=== PATIENT | female | born 1975 | race Caucasian/White ===

== ENCOUNTER 2022-03-04 13:53 | Emergency (ER) | payer BC ==
[~2022-03-04] VITALS: Ht 162.6 cm; Wt 99.5 kg
[2022-03-04] MEDS ORDERED: ONDANSETRON 4MG ORAL DISINTEGRATING TAB PO ONE (14:25)
[2022-03-04] MEDS ORDERED: ACETAMINOPHEN 500 MG TAB PO ONE (14:25)
[2022-03-04] MEDS ORDERED: DERMABOND TOPICAL SKIN ADHESIVE TOP ONE (15:10)
[2022-03-04] MEDS ORDERED: IBUPROFEN 800 MG TAB PO ONE (15:15)
[2022-03-04 15:22] VITALS: BP 142/62
== END 2022-03-04 15:44 | disposition home or self-care (01) ==
LOC: M ED 13:53
DX: S06.0X0A Concussion without loss of consciousness, initial encounter (principal); S00.01XA Abrasion of scalp, initial encounter; W19.XXXA Unspecified fall, initial encounter; Y92.018 Other place in single-family (private) house as the place of occurrence of the external cause; I10 Essential (primary) hypertension; Z88.0 Allergy status to penicillin; Z88.1 Allergy status to other antibiotic agents; Z88.2 Allergy status to sulfonamides